=== PATIENT | male | born 1990 ===

== ENCOUNTER 2018-04-07 00:56 | Emergency (ER) | payer OTHER ==
[2018-04-07 01:51] LABS: BASO % 0.5 % (0.0-2.0); EOS % 0.4 % (0.0-4.0); HEMOGLOBIN 16.1 g/dL (12.0-18.0); LYMPH # 1.3 K/uL (1.0-4.3); LYMPH % 13.8 % (20.0-40.0); MEAN CELL VOLUME 97.2 fL (80.0-94.0); MEAN CORPUSCULAR HEMOGLOBIN 34.3 pg (27.0-31.0); MEAN CORPUSCULAR HGB CONC 35.3 g/dL (33.0-37.0); MEAN PLATELET VOLUME 8.4 fL (7.2-11.7); MONO # 0.2 K/uL (0.0-0.8); MONO % 2.3 % (0.0-10.0); NEUT # 7.7 K/uL (1.8-7.0); RBC 4.7 Mil/uL (4.40-5.90); RED CELL DISTRIBUTION WIDTH 12.9 % (11.5-14.5); WHITE BLOOD COUNT 9.3 K/uL (4.8-10.8)
[2018-04-07 02:02] LABS: ALB/GLOB RATIO 1.2 (1.0-2.1); ALBUMIN 4.6 g/dL (3.5-5.0); ALT/SGPT 286 U/L (21-72); AST/SGOT 198 U/L (17-59); BLOOD UREA NITROGEN 16 mg/dL (9-20); CALCIUM 8.3 mg/dl (8.6-10.4); GFR AFRICAN-AMERICAN > 60; GFR NON-AFRICAN AMERICAN > 60
--- NOTE | 2018-04-07 02:03 | C.PDOC ---
History Of Present Illness <KennedyParulDeshaun R - Last Filed: 04/07/18 06:29> <Kt Edwards E - Last Filed: 04/07/18 10:14> 27 year old male presents to the ER via EMS after he was found unresponsive. Patient admits to heavy ETOH intake at home. Denies physical complaints at this time. (Deshaun Kennedy) History Per: Patient, EMS History/Exam Limitations: no limitations Onset/Duration Of Symptoms: Hrs Current Symptoms Are (Timing): Still Present Suicide/Self Injury Attempted (Context): None Modifying Factor(s): Alcohol Associated Symptoms: Anger. denies: Depression, Suicidal Thoughts Involuntary Hold By: None Recent travel outside of the [place]: No <Deshaun Kennedy R - Last Filed: 04/07/18 06:29> <tK Edwards E - Last Filed: 04/07/18 10:14> Time Seen by Provider: 04/07/18 01:34 Chief Complaint (Nursing): Substance Abuse Past Medical History Reviewed: Historical Data, Nursing Documentation, Vital Signs Family History: States: Unknown Family Hx - Social History Hx Alcohol Use: Yes Hx Substance Use: No <BrentParulDeshaun R - Last Filed: 04/07/18 06:29> Vital Signs: Last Vital Signs Temp 98.5 F 04/07/18 07:26 Pulse 90 04/07/18 07:26 Resp 20 04/07/18 07:26 BP 117/62 04/07/18 07:26 Pulse Ox 98 04/07/18 07:26 Review Of Systems Constitutional: Negative for: Fever, Chills Cardiovascular: Negative for: Chest Pain, Palpitations Respiratory: Negative for: Cough, Shortness of Breath Gastrointestinal: Negative for: Nausea, Vomiting <BrentDeshaun R - Last Filed: 04/07/18 06:29> Physical Exam - Physical Exam Appears: Non-toxic, Other (No sign of injury, lethargic, ETOH on breath) Skin: Normal Color, Warm, Dry Head: Atraumatic, Normacephalic Eye(s): bilateral: Normal Inspection Oral Mucosa: Moist Chest: Symmetrical, No Tenderness Cardiovascular: Rhythm Regular Respiratory: Normal Breath Sounds, No Rales, No Rhonchi, No Wheezing Gastrointestinal/Abdominal: Soft, No Tenderness Neurological/Psych: Oriented x3, Normal Speech <Deshaun Kennedy - Last Filed: 04/07/18 06:29> ED Course And Treatment - Laboratory Results Result Diagrams: 04/07/18 01:48 04/07/18 05:55 O2 Sat by Pulse Oximetry: 97 (Room air) Pulse Ox Interpretation: Normal Progress Note: Blood work and urinalysis ordered. <Deshaun Kennedy - Last Filed: 04/07/18 06:29> - Laboratory Results Result Diagrams: 04/07/18 01:48 04/07/18 05:55 Progress Note: Pt was not signed out to me. However pt is now AAOx3. Ambulating with a steady gait. He is requesting to be discharged home. He states that he just drank a lot of alcohol last night. Reassessment Condition: Improved <Kt Edwards - Last Filed: 04/07/18 10:14> Disposition <Deshaun Kennedy - Last Filed: 04/07/18 06:29> Counseled Patient/Family Regarding: Diagnosis, Need For Followup - Disposition Disposition Time: :13 <Kt Edwards - Last Filed: 04/07/18 10:14> - Disposition Referrals: [facility] [Outside] Disposition: HOME/ ROUTINE Condition: IMPROVED Additional Instructions: Avoid alcohol. Follow up with your doctor or in the clinic. Return to the ER if you develop worsening of symptoms or if you have any other concerns. Instructions: Alcohol Poisoning (DC) - Clinical Impression Clinical Impression: Alcohol intoxication - Scribe Statement The provider has reviewed the documentation as recorded by the Scribe <Deshaun Kennedy - Last Filed: 04/07/18 06:29> <Kt Edwards - Last Filed: 04/07/18 10:14> - Scribe Statement Dell Reyes All medical record entries made by the Scribe were at my direction and personally dictated by me. I have reviewed the chart and agree that the record accurately reflects my personal performance of the history, physical exam, medical decision making, and the department course for this patient. I have also personally directed, reviewed, and agree with the discharge instructions and disposition. (Deshaun Kennedy)
[2018-04-07] MEDS ORDERED: Sodium Chloride 0.45% 500ml 1,000 ML IV ONE (04:28)
[2018-04-07] MEDS ORDERED: Sodium Chloride 0.9% 1,000 ML ONE (04:44)
[2018-04-07 04:45] LABS: SQUAMOUS EPITHIAL < 1 /hpf (0-5); URINE BILIRUBIN NEGATIVE (NEGATIVE); URINE CLARITY Clear (Clear); URINE COLOR Straw (YELLOW); URINE GLUCOSE (UA) NORMAL (Normal); URINE LEUKOCYTE ESTERASE NEG Leu/uL (Negative); URINE PROTEIN NEGATIVE (NEGATIVE); URINE UROBILINOGEN NORMAL mg/dL (0.2-1.0)
[2018-04-07 04:51] LABS: URINE BLOOD NEGATIVE (NEGATIVE)
[2018-04-07 05:10] LABS: BARBITURATES, UR NEGATIVE (NEGATIVE); BENZODIAZEPINES, UR NEGATIVE (NEGATIVE); OPIATES, UR NEGATIVE (NEGATIVE); PHENCYCLIDINE, UR NEGATIVE (NEGATIVE)
[2018-04-07 06:12] LABS: BLOOD UREA NITROGEN 13 mg/dL (9-20); CALCIUM 7.4 mg/dl (8.6-10.4); GFR AFRICAN-AMERICAN > 60; GFR NON-AFRICAN AMERICAN > 60
[2018-04-07 10:20] VITALS: BP 131/88; PULSE 89; RESP 16; TEMP 98.4; O2SAT 96
== END 2018-04-07 10:37 | disposition home or self-care (01) ==
LOC: C.ER 00:56
DX: F10.129 Alcohol abuse with intoxication, unspecified (principal); Y90.8 Blood alcohol level of 240 mg/100 ml or more